=== PATIENT | male | born 1945 | race Caucasian/White ===

== ENCOUNTER 2017-11-29 16:49 | Emergency (ER) | payer OTHER, MEDICARE ==
[~2017-11-29] VITALS: Wt 104.3 kg
--- NOTE | ~2017-11-29 | EKG ---
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
[~2017-11-29 16:49] MED LIST: "\\\"BP PILL\\\""; AMOXICILLIN500 MG PO; ASPIR-TRIN325 MG PO; ASPIRIN81 M1 PO; AUGMENTIN 875 M1 TAB PO; BAYER ASPIRIN C81 MG PO; CITALOPRAM20 MG PO; DIABETA5 MG PO; FLEXERIL10 MG PO; FOSAMAX70 MG/75 M; GLYBURIDE2.5 MG PO; HYDROCODONE BIT1 T11 PO; LEVODOPA; LIDEX0.05% T; LIPITOR40 MG PO; LISINOPRIL10 MG PO; MEDROL DOSEPAK4 MG PO; METFORMIN1000 MG PO; METFORMIN500 MG PO; MOTRIN800 MG PO; NEURONTIN800 MG PO; NORCO 325 MG-51 TAB PO; NORFLEX100 MG PO; Nystatin Ointme30 GM T; OMEPRAZOLE20 MG PO; OXYBUTYNIN5 MG PO; PERCOCET 325 MG1 TA2 PO; PERCOCET 325 MG1 TA7 PO; PREDNISONE10 MG PO; QUETIAPINE PO; ROBAXIN500 MG PO; ROBAXIN750 MG PO; SINEMET 10-1001 TA1 PO; TRAMADOL HCL50 MG PO; VICODIN 5/500 505 MG PO; VICODIN ES 7501 TAB PO; VITAMIN C500 MG PO; ZOCOR80 MG PO; [UNRECOGNIZED DRUG - REMARK]
[2017-11-29 17:27] LABS: BASO # 0.1 10*3/uL (0.0-0.1); BASO % 0.6 % (0.0-1.0); EOS # 0.2 10*3/uL (0.0-0.4); EOS % 1.7 % (1.0-4.0); HEMATOCRIT 43.9 % (42.0-52.0); LYMPH # 2.8 10*3/uL (1.3-4.4); LYMPH % 29.8 % (27.0-41.0); MEAN CELL VOLUME 92.6 fl (80.0-94.0); MEAN CORPUSCULAR HGB 29.5 pg (27.0-31.0); MEAN CORPUSCULAR HGB CONC 31.9 g/dl (33.0-37.0); MEAN PLATELET VOLUME 9.6 fl (9.6-12.3); MONO # 0.6 10*3/uL (0.1-1.0); MONO % 6.7 % (3.0-9.0); NEUT # 5.6 10*3/uL (2.3-7.9); PLATELET COUNT AUTOMATED 225 10*3/uL (130-400); RED BLOOD COUNT 4.74 10*6/uL (4.50-5.90); RED CELL DISTRI WIDTH 12.9 % (0-14.5); WHITE BLOOD COUNT 9.3 10*3/uL (4.8-10.8)
[2017-11-29 17:36] LABS: ACT PARTIAL THROMBO TIME 25.3 SECONDS (20.8-31.5)
[2017-11-29 17:44] LABS: ALBUMIN 3.6 gm/dl (3.1-4.5); ALKALINE PHOSPHATASE 84 U/L (45-117); BUN 14 mg/dl (7-24); CHLORIDE 105 mmol/L (98-107); CREATININE 1.02 mg/dL (0.70-1.30); LIPASE 78 U/L (73-393); POTASSIUM 3.7 mmol/L (3.5-5.1); SGOT/AST 12 IU/L (3-35); SGPT/ALT 13 U/L (12-78); SODIUM 141 mmol/L (136-145)
[2017-11-29 17:45] LABS: TROPONIN I < 0.015 ng/ml (<0.045)
[2017-11-29] MEDS ORDERED: Motrin,Rufen800 MG PO (20:09)
[2017-11-29] MEDS ORDERED: KEFLEX500 M1 PO (20:09)
== END 2017-11-29 20:12 | disposition home or self-care (01) ==
LOC: ED 16:49
PROVIDERS: Emergency Medicine
DX: S01.01XA Laceration without foreign body of scalp, initial encounter (principal); S40.012A Contusion of left shoulder, initial encounter; S20.212A Contusion of left front wall of thorax, initial encounter; S50.312A Abrasion of left elbow, initial encounter; G20 Parkinson's disease; Z98.890 Other specified postprocedural states; Z79.82 Long term (current) use of aspirin; Z88.8 Allergy status to other drugs, medicaments and biological substances; W19.XXXA Unspecified fall, initial encounter; Y93.89 Activity, other specified; Y92.099 Unspecified place in other non-institutional residence as the place of occurrence of the external cause; Y99.9 Unspecified external cause status

== ENCOUNTER 2017-12-02 16:19 | Emergency (ER) | payer OTHER, MEDICARE ==
[~2017-12-02] VITALS: Ht 182.8 cm; Wt 112.0 kg
[~2017-12-02 16:19] MED LIST changes: +KEFLEX500 M1 PO; +Motrin,Rufen800 MG PO
== END 2017-12-02 17:48 | disposition home or self-care (01) ==
LOC: ED 16:19
DX: S20.222A Contusion of left back wall of thorax, initial encounter (principal); R03.0 Elevated blood-pressure reading, without diagnosis of hypertension; M25.512 Pain in left shoulder; Z88.6 Allergy status to analgesic agent; Z79.899 Other long term (current) drug therapy; W10.9XXA Fall (on) (from) unspecified stairs and steps, initial encounter; Y93.89 Activity, other specified; Y92.009 Unspecified place in unspecified non-institutional (private) residence as the place of occurrence of the external cause; Y99.8 Other external cause status